=== PATIENT | male | born 1985 | race Caucasian/White ===

== ENCOUNTER 2018-12-20 10:55 | Inpatient (IN) | payer MEDICAID ==
[~2018-12-20] VITALS: Ht 182.9 cm; Wt 113.9 kg
[2018-12-20 12:15] VITALS: BP 154/90
--- NOTE | 2018-12-20 12:15 | NUR ---
33 year old MALE admitted to room # 424 for stabilization. 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 last used 48 hours prior to admission. Compliant with admission procedure. Patient denies any anxiety, but is unable to sit still, taps toes to floor continuously, looks about room, unable to focus eyes on nurse during interview. See assessment forms for additional information about patient status.
--- NOTE | 2018-12-20 12:22 | NUR ---
PATIENT MEETS [facility]. CINA=15. PATIENT IS WANTING RESIDENTIAL TREATMENT FOR HIS AFTERCARE PLAN. PATIENT IS SET UP TO GO TO [facility]. JHONNY VEGA B.A. LIQUEFACTION AND REGASIFICATION HELPER
[2018-12-20 12:57] LABS: BASO # 0.1 10*3/uL (0.0-0.1); BASO % 0.8 % (0.0-1.0); EOS # 0.3 10*3/uL (0.0-0.4); EOS % 3.8 % (1.0-4.0); HEMATOCRIT 46.5 % (42.0-52.0); HEMOGLOBIN 15.4 g/dl (14.0-18.0); LYMPH # 2.4 10*3/uL (1.3-4.4); LYMPH % 34.4 % (27.0-41.0); MEAN CELL VOLUME 91.4 fl (80.0-94.0); MEAN CORPUSCULAR HGB 30.3 pg (27.0-31.0); MEAN CORPUSCULAR HGB CONC 33.1 g/dl (33.0-37.0); MEAN PLATELET VOLUME 11.1 fl (9.6-12.3); MONO # 0.8 10*3/uL (0.1-1.0); MONO % 10.6 % (3.0-9.0); NEUT # 3.6 10*3/uL (2.3-7.9); NEUT % 50.1 % (47.0-73.0); PLATELET COUNT AUTOMATED 172 10*3/uL (130-400); RED BLOOD COUNT 5.09 10*6/uL (4.50-5.90); RED CELL DISTRI WIDTH 12.7 % (0-14.5); WHITE BLOOD COUNT 7.1 10*3/uL (4.8-10.8)
[2018-12-20 13:11] LABS: ALBUMIN 3.5 gm/dl (3.1-4.5); ALKALINE PHOSPHATASE 73 U/L (45-117); BUN 10 mg/dl (7-24); CHLORIDE 100 mmol/L (98-107); CREATININE 1.07 mg/dL (0.70-1.30); POTASSIUM 3.8 mmol/L (3.5-5.1); SGOT/AST 42 IU/L (3-35); SGPT/ALT 61 U/L (12-78); SODIUM 136 mmol/L (136-145); TOTAL PROTEIN 7.4 gm/dL (6.4-8.2)
[2018-12-20 13:25] LABS: ETHYL ALCOHOL < 3.0 mg/dl (<3)
[2018-12-20 16:00] VITALS: BP 147/81
--- NOTE | 2018-12-20 17:34 | NUR ---
PT JUST NOW PROVIDED A URINE SAMPLE AFTER BEING EDUCATED SEVERAL TIMES THAT HE WAS UNABLE TO GET ANY MEDS WITHOUT FIRST PROVIDING A SAMPLE. DR ARMIJO WAS NOTIFIED AND SAID THAT IT WAS OK BUT NO MEDS UNTIL THEN. PT STATED HE DIDN'T WANT TO GET SICK TOO SOON AND KNOWS HOW IT THIS ALL WORKS. PATIENT STATES HE WILL TAKE HIS FIRST DOSE AT 2300 ALONG WITH SOME OTHER MEDS TO HELP HIM SLEEP. FIRST DOSE OF SUBUTEX RETIMED FOR 2300. WILL CONT TO MONITOR FOR ANY WITHDRAWAL SYMPTOMS.
[2018-12-20 17:39] LABS: BILIRUBIN NEGATIVE (NEGATIVE); BLOOD NEGATIVE (NEGATIVE); CLARITY CLEAR (CLEAR); COLOR YELLOW (YELLOW); GLUCOSE NEGATIVE (NEGATIVE); KETONE NEGATIVE (NEGATIVE); LEUKO ESTERASE NEGATIVE (NEGATIVE); NITRITE NEGATIVE (NEGATIVE); SPECIFIC GRAVITY 1.025 (1.005-1.030); UROBILINOGEN 0.2 E.U./dl (0.2-1.0)
[2018-12-20 17:49] LABS: URINE AMPHETAMINES > 1000 (1000ng/ml); URINE BARBITURATES < 200 (200ng/ml); URINE BENZODIAZEPINES < 200 (200ng/ml); URINE CANNABINOIDS (THC) > 50 (50ng/ml); URINE COCAINE > 300 (300ng/ml); URINE METHADONE < 300 (300ng/ml); URINE OPIATES < 300 (300ng/ml); URINE PHENCYCLIDINE < 25 (25ng/ml)
[2018-12-20 17:55] LABS: BACTERIA TRACE; EPITHELIAL CELLS 0-2; MUCOUS TRACE; WBC 0-2 wbc/hpf (0-5)
--- NOTE | 2018-12-20 19:10 | NUR ---
IMODIUM GIVEN FOR C/O DIARRHEA.
[2018-12-20 20:00] VITALS: BP 144/77
--- NOTE | 2018-12-20 20:25 | NUR ---
PATIENT ASSESSMENT COMPLETED AT THIS TIME WITHOUT INCIDENT, PATIENT DENIES ANY CHEST PAIN/PRESSURE OR SHORTNESS OF BREATH. SEE EMAR FOR MEDICATION ADMINISTRATION. CALL LIGHT WITHIN REACH WILL CONTINUE TO MONITOR
--- NOTE | 2018-12-20 22:00 | NUR ---
PATIENT COMPLAINING OF ANXIETY, RESTLESS LEGS, NAUSEA, INSOMNIA, AND ABDOMINAL PAIN AT THIS TIME, PATIENT OFFERED PRESCRIBED MEDICATIONS FOR EACH COMPLAINT BUT REFUSED ALL MEDICATIONS EXCEPT THOSE DOCUMENTED GIVEN IN EMAR.
--- NOTE | 2018-12-20 23:00 | NUR ---
24 HOUR CHART CHECK COMPLETED
[2018-12-21] VITALS: BP 118/56
--- NOTE | 2018-12-21 04:12 | NUR ---
PATIENT RESTING IM BED WITH EYES CLOSED, RESPIRATIONS EASY AND NON-LABORED AT THIS TIME. CALL LIGHT WITHIN REACH WILL CONTINUE TO MONITOR.
--- NOTE | 2018-12-21 05:21 | NUR ---
BELT GLASS SANDER LEORA CANTU NEEDED TO ASSESS PATIENT WOUNDS, ACCOMPANIED THIS RN TO PATIENT ROOM HE WAS DUE MEDICATIONS AT THIS TIME. PATIENT ACCEPTED SUBUTEX BUT REFUSED ALL OTHER OFFERED MEDICATIONS FOR HIS COMPLAINTS OF DIAHRREA, AND STATED PER PATIENT "DOPE SICKNESS AND COMING DOWN OFF FENTANYL" PATIENT ALSO STATED THAT "HAD I KNOW THAT THIS WAS A HOSPITAL AND NOT A DRUG REHAB I WOULD NEVER HAD AGREED TO COME ALL THE WAY DOWN HERE FROM [place] CAUSE THEY AREN'T TAKING CARE OF MY DOPE SICKNESS AT ALL." PATIENT WAS SLIGHTLY AGGITATED AND REFUSED ANY WOUND CARE ASSESSMENT OR OTHER MEDICATIONS.
--- NOTE | 2018-12-21 05:26 | NUR ---
BISHNU MARTINES [id number] Please refer to the physician's history and physical for past medical history, comorbid conditions, and allergies. Diagnosis: OPIATE WITHDRAWAL Reji Score: 23,LOW OR NO RISK WOUND DESCRIPTIONS: This nurse went into evaluate patients for skin impairments while nurse was giving him medications that was due. Patient stated he is to dope-sick and that he doesn't want to be seen at this time. Patient stated if he would have known that this was a hospital and not a detox center he would have never of came. He stated that detox center dose you differently and he shouldn't have to sit here for three days being sick states he has diarrhea and when asked if he wanted any prn medication from nurse caring for him he denied at time of assessment Surface the patient is resting on: Isoflex SKIN PREVENTION RECOMMENDATION: 1. Pressure redistribution support surface as appropriate 2. Elevate heels 3. Remove boots/TEDS every shift and reapply 4. Head of bed 30 degrees as tolerated 5. Assess nutrition and hydration 6. Manage moisture 7. Avoid the use of containment devices while in bed 8. Use absorptive products on surfaces limit layers of linens on bed 9. Turn and reposition every 1-2 hours in bed and every 1 hour in chair as tolerated 10. Weight shifts every 15 minutes while up in chair 11. Offloading with pillows or device to keep heels elevated off bed 12. Monitor skin at least every shift 13. Inspect under medical devices twice a day
--- NOTE | 2018-12-21 07:45 | NUR ---
THIS NURSE IN TO ASSESS PATIENT. PATIENT C/O SEVERE ANXIETY, AGITATION, MUSCLE ACHES, RESTLESS LEGS, NAUSEA AND POOR APPETITE. MULTIPLE COMPLAINTS AT THIS TIME. PT TEARFUL DURING ASSESSMENT. PRN MEDS WILL BE ADMINISTERED PER ORDER.
[2018-12-21 08:00] VITALS: BP 148/100
--- NOTE | 2018-12-21 08:01 | NUR ---
PT GIVEN PRN MEDS FOR C/O MUSCLE ACHES, RESTLESS LEGS, PAIN/DISCOMFORT & NAUSEA. WILL MONITOR EFFECTIVENESS. PHARMACY CALLED AT THIS TIME REGARDING NICOTROL INHALER.
--- NOTE | 2018-12-21 11:08 | NUR ---
PATIENT HAS BEEN ACCEPTED TO [facility] FOR RESIDENTIAL TREATMENT. [facility] WILL BE TRANSPORTING PATIENT ON December. [place] STAFF WILL CONTACT FACILITY WHEN HE HAD BEEN DISCHARGED. JHONNY VEGA B.A. FIELD IDENTIFICATION SPECIALIST
--- NOTE | 2018-12-21 11:10 | NUR ---
CALLED REGARDING INCREASED ANXIETY. NO NEW ORDERS AT THIS TIME.
[2018-12-21 12:00] VITALS: BP 124/75
--- NOTE | 2018-12-21 12:27 | NUR ---
PT GIVEN ROUTINE SUBUTEX AT THIS TIME. WILL MONITOR.
--- NOTE | 2018-12-21 14:28 | NUR ---
PT GIVEN PO ROBAXIN AND VISTARIL PER PRN ORDER FOR C/O MUSCLE ACHES AND ANXIETY. WILL MONITOR EFFECTIVENESS.
--- NOTE | 2018-12-21 15:30 | NUR ---
Patient resting. Responding to scheduled medications with fewer complaints of pain and anxiety.
[2018-12-21 16:00] VITALS: BP 122/66
[2018-12-21 20:00] VITALS: BP 152/95
--- NOTE | 2018-12-21 20:01 | NUR ---
PATIENT MEDICATED WITH BENADRYL, BENTYL, MOTRIN, REQUIP, ROBAXIN, VISTARIL AND ZOFRAN. ALSO MEDICATED WITH ROUTINE SUBUTEX. PATIENT AGITATED AT THIS TIME STATING WE DON'T KNOW HOW TO DETOX AND HE IS REQUESTING TO BE TRANSFERRED TO THE REHAB PLACE THAT SENT HIM HERE OR HE WANTS TO SIGN OUT. VERY AGITATED AND ASKING TO SPEAK TO THE LOSS CONTROL MANAGER. MARIJA NOTIFIED THAT PATIENT WANTS TO TALK TO HER. WILL CONTINUE TO MONITOR.
--- NOTE | 2018-12-21 21:51 | NUR ---
MARIJA THE INTERLOCKER MAINTAINER WAS IN AND TALKED TO PATIENT. EXPLAINED TO HIM THAT THERE WAS NOTHING WE COULD DO TONIGHT AND HE IS OK WITH STAYING THE NIGHT AND BEING TRANSFERRED TOMORROW. MEDICATED WITH TRAZODONE AT THIS TIME FOR SLEEP. PATIENT GIVEN CEREAL AND MILK ALONG WITH JUICE. SEEMS TO BE CALMED DOWN AT THIS TIME AND IN A MORE PLEASANT MOOD. NO SIGNS OR SYMPTOMS OF DISTRESS NOTED. WILL CONTINUE TO MONITOR. CALL LIGHT IN REACH.
[2018-12-22] VITALS: BP 110/61
[2018-12-22 08:00] VITALS: BP 118/78
--- NOTE | 2018-12-22 08:41 | NUR ---
Patient displaying withdrawal symptoms, including: irritability, anxiousness, restlessness and agitation, complicated by impulsive behavior. Patient scores a 5 on the withdrawal scale. Scheduled/PRN medications provided, doctor notified of patient's agitation and AMA potential. Will continue to monitor medication effectiveness.
--- NOTE | 2018-12-22 08:45 | NUR ---
[facility] CALLED REGARDING PATIENT REQUEST. JHONNY WILL BE IN TO SEE THE PATIENT.
--- NOTE | 2018-12-22 11:13 | NUR ---
[place] STAFF SPOKE WITH PATIENT. PATIENT HAS A BED AVAILABLE FOR HIM AT [facility]. THE FACILITY WILL PROVIDE TRANSPORTATION. PATIENT AGREES AND UNDERSTANDS HIS AFTERCARE PLAN. JHONNY VEGA B.A. DRY CAN TENDER
--- NOTE | 2018-12-22 12:00 | NUR ---
PATIENT REFUSING WOUND DOCUMENTATION AND PHOTOS.
--- NOTE | 2018-12-22 12:08 | NUR ---
Discharge instructions reviewed with patient/family. Patient receptive and verbalizes understanding. Follow-up care arranged. Written instructions given to patient/family. YANNA PEREZ.
== END 2018-12-22 12:08 | disposition home or self-care (01) | DRG 773 ==
LOC: 4E 10:55
PROVIDERS: Internal Medicine; ADMIT Internal Medicine
DX: F11.23 Opioid dependence with withdrawal (principal); R52 Pain, unspecified; G47.00 Insomnia, unspecified; F15.120 Other stimulant abuse with intoxication, uncomplicated; F17.219 Nicotine dependence, cigarettes, with unspecified nicotine-induced disorders; F15.182 Other stimulant abuse with stimulant-induced sleep disorder; F14 Cocaine related disorders; F12.90 Cannabis use, unspecified, uncomplicated; F43.10 Post-traumatic stress disorder, unspecified; F32.9 Major depressive disorder, single episode, unspecified; Z71.6 Tobacco abuse counseling; Z84.89 Family history of other specified conditions